=== PATIENT | male | born 1965 | race Caucasian/White ===

== ENCOUNTER 2024-06-15 21:14 | Emergency (ER) | payer BC ==
[2024-06-15] MEDS: Acetaminophen/HYDROcodone 325-5 MG Tab PO ONE (21:49)
[2024-06-15] MEDS: Ketorolac 15 MG/ML SDV IVPUSH ONE (21:49)
[2024-06-15] MEDS: Take Home: Acetaminophen/Codeine 300 MG/30 MG, 5 Tab Pack PO ONE (22:51)
== END 2024-06-15 22:59 | disposition home or self-care (01) ==
LOC: VM.ED 21:14
DX: S62.623A Displaced fracture of middle phalanx of left middle finger, initial encounter for closed fracture (principal); S09.90XA Unspecified injury of head, initial encounter; S00.81XA Abrasion of other part of head, initial encounter; S00.01XA Abrasion of scalp, initial encounter; S60.042A Contusion of left ring finger without damage to nail, initial encounter; W19.XXXA Unspecified fall, initial encounter
CPT/HCPCS: 70450; 70486; 72125; 73130; 96374; 99284; A9270; J1885